=== PATIENT | female | born 1975 | race Caucasian/White ===

== ENCOUNTER 2016-05-29 09:11 | Day surgery (SDC) | payer OTHER ==
[~2016-05-29] VITALS: Ht 167.6 cm; Wt 136.1 kg
[~2016-05-29 09:11] MED LIST: BENZ1KIT27 TP; BENZ200C44 PO; BUPR-97 PO; CLIN30GE2 TP; ESOM20CA28 PO; FEXO180T85 PO; INDO75CA2 PO; KEN25CR EXT; LOSA25TA21 PO; Lactated Ringer's 1,000 ML IV ONE; METF500T4 PO; PRE20 PO; VERA180T5 PO
[2016-05-29] MEDS ORDERED: Lidocaine PF 1% 30 mL Inj ONE (09:12)
[2016-05-29] MEDS ORDERED: Propofol 10,000 mCg/mL 20 mL Inj ONE (09:12)
[2016-05-29 09:34] VITALS: BP 119/67; PULSE 68; O2SAT 98
[2016-05-29] MEDS ORDERED: Lactated Ringer's 1,000 ML IV SCH (09:52)
--- NOTE | 2016-05-29 09:52 | PCM.HPANE ---
Patient Data Date of Service: May 29, 2016 Surgeon Admitting Provider: Attending Provider:Lan Harris MD Primary Care Physician:Ilya Long DO Other Provider:Lynette Walsh Anesthesia Reason for Visit GERD Ht/WT & BMI Height (Feet): 5 Height (Inches): 6 Weight (Kilograms): 136.08 Body Mass Index 48.00 Allergies Coded Allergies: budesonide (Verified Allergy, Severe, RASH, 03/01/09) hydrocodone (Verified Allergy, Severe, HALLUCINATED, 03/01/09) hydrochlorothiazide (Verified Allergy, Unknown, 05/28/16) triamterene (Verified Allergy, Unknown, 05/28/16) Past Anesthesia History Anesthesia History: Denies:: Abnormal Airway, Anesthesia Reactions, Difficult Intubation, Fam Anesthesia Reaction, Fam Malignant Hypertherm, Malignant Hyperthermia Diabetes History Hx Diabetes?: Yes Type of Diabetes: Type II Glycemic Control: Oral Medication Current Bedside Blood Glucose: 91 MRSA MRSA: No Medications Hypertension Medication: Yes Home Meds Incl Beta Kortney: No Reported Medications Bupropion ER (Wellbutrin XL)150 Mg Tab.er.77q003 Mg PO DAILY Ref 0 05/28/16 Verapamil ER 180 Mg Tablet.er180 Mg PO DAILY Ref 0 05/28/16 Triamcinolone Acet (Triamcinolone Acetonide Cream)1 Applic/0.25 Gm Cr1 Applic EXT BID #60 GM Ref 0 05/28/16 Esomeprazole Magnesium (Nexium)20 Mg Capsule.dr20 Mg PO BID Ref 0 05/28/16 Metformin 500 Mg Txquch169 Mg PO DAILY Ref 0 05/28/16 Losartan Potassium 25 Mg Mdmvor38 Mg PO DAILY 05/28/16 Indomethacin ER 75 Mg Bfmhufy61 Mg PO DAILY Ref 0 05/28/16 Benzoyl Perox/Skin Clnsr/Emoll (Acnefree Severe Acne Clr Systm)2.5 %-10 % Kit1 Each TP DAILY 05/28/16 Clindamycin Phosphate (Clindamycin Phosphate Gel)30 Gm Gel..gram.1 Applic TP DAILY #30 GM Ref 0 05/28/16 Benzonatate 200 Mg Mkfkmfo312 Mg PO TID 05/28/16 Fexofenadine (Emely Allergy)180 Mg Ddyloz786 Mg PO DAILY Ref 0 05/28/16 Discontinued Reported Medications Prednisone (PredniSONE)20 Mg Hfsnld24 Mg PO DAILY Ref 0 05/28/16 Discontinued Scripts Prednisone (PredniSONE)20 Mg Ylstin41 Mg PO DAILY #15 TABLET Ref 0 Prov:Man Miller DO 02/01/16 Albuterol HFA (Proair HFA)8.5 Gm Hfa.aer.ad2 Puffs INHALATION Q4H #1 INHALER Prov:Man Miller DO 02/01/16 Azithromycin (Zithromax (Z-Surinder))250 Mg Xxnozy634 Mg PO DIRECTED 5 Days Ref 0 Take two tablets by mouth on day 1, then take one tablet daily on days 2 through 5. Prov:Man Miller DO 02/01/16 History History of ENT Problems?: No HEENT History: Positive for:: Hearing Problem (mild hearing loss) Denies:: Abnormal Airway Difficult Intubation Teeth Condition: Missing Teeth Hx of Heart Problems?: No Cardiovascular History: Positive for:: Hypertension Denies:: Congestive Heart Failure Hx of Respiratory Problem?: No Respiratory History: Positive for:: Use of C-PAP Machine (awaiting machine) Denies:: Tuberculosis Hx Neurologic Problems?: No Neurological History: Denies:: CVA Hx of GI Problems?: Yes Gastrointestinal History: Positive for:: Gall Bladder Disease (removed) Gastroesphageal Reflux (with erosive esophagitis) Hx of Problems?: No Female Hx: Denies:: Currently (tubal ligation) Hx Musculoskeletal Problems?: No Psycho Social History: Positive for:: Anxiety Hx Depression Hx Surgeries?: Yes (Gallbladder removed, plate in left ankle, x2 with tubal ligation) Hx Any Other Health Problems?: Yes Hx Diabetes: No Hx Alcohol Use: Yes (occasional)Hx Substance Use: No Smoking Status: Former Smoker Have You Smoked inLast 12 mo: No Stop/Bang Treated for Sleep Apnea?: Yes Do You Have a CPAP Machine?: No (don't have machine yet) LIZETT Risk Assessment: High Risk, =/>3 Yes LIZETT Category 4 OutPt Procedure: Yes Risk Assessment Category Category 1A: Patient has history of documented sleep apnea, and HAS NOT received any narcotic, sedative or anesthesia administration during this stay. Category 1B: Patient has history of documented sleep apnea, and HAS received any narcotic , sedative or anesthesia administration during this stay Category 2: Patient has SUSPECTED Obstructive Sleep Apnea, and HAS received any narcotic , sedative or anesthesia administration during this stay. Category 3: Patient has SUSPECTED Obstructive Sleep Apnea and HAS NOT received narcotic, sedative or anesthesia administration during this stay. Category 4: Outpatient in Procedural Areas with known sleep apnea or who screen positive for High Risk via the STOP/BANG questionnaire. Exam Exam General Appearance: Alert, Oriented X3, Cooperative HEENT/AIRWAY: MP 2, Neck Movement (Full, thick), Mouth Opening (Wide) Lungs: Clear to Auscultation, Normal Air Movement Heart: Regular Rate/Rhythm, Normal S1, Normal S2 Meds/Labs/Diagnostics Bedside Blood Glucose: 91 Plan Impression Patient chart reviewed, patient interviewed and anesthestic plan with risks, benefits, and alternatives discussed, and informed consent obtained. NPO Status: > 8 hours ASA Physical Status: ASA3 Severe Disease Anesthetic Plan: MAC Bene/Risks/Altern/Consents: Yes HP Complete Prior to Induction: Yes Victoriano Short MD May 29, 2016 09:34
[2016-05-29] MEDS ORDERED: Ondansetron 2 mg/mL 2 mL Inj IVPUSH PRN (09:55)
[2016-05-29] MEDS ORDERED: MetoCLOpramide 5 mg/mL 2 mL Inj IVPUSH PRN (09:55)
[2016-05-29 10:21] VITALS: BP 122/83; PULSE 80; RESP 12; O2SAT 98
--- NOTE | 2016-05-29 10:27 | PCM.ANEP1 ---
Post Anesthesia Phase 1 PACU Phase 1 Assessment Date of Service: May 29, 2016 Vital Signs Vital Signs Date Time Temp Pulse Resp B/P Pulse Ox O2 Delivery O2 Flow Rate FiO2 05/29/16 10:21 36.8 80 12 122/83 98 Room Air 05/29/16 09:34 36.9 68 119/67 98 Room Air Anesthetic Administered: MAC Level of Alertness: Awake, talking DIAZ's with Equal Strength: No Pain: No Nausea or Vomiting: No Lungs: Normal Air Movement Victoriano Short MD May 29, 2016 10:26
[2016-05-29 10:30] VITALS: BP 121/66; PULSE 75; RESP 14; O2SAT 99
--- NOTE | 2016-05-29 10:33 | PCM.ANEP2 ---
Post Anesthesia Evaluation ASA/CMS Post Anesthesia Date of Service: May 29, 2016 VS in Patient's Normal Range?: Yes Resp Stable; Airway Patent?: Yes CV Function & Hydration Stable: Yes Mental Status Recovered?: Yes Pain control Satisfactory?: Yes N/V Control Satisfactory?: Yes Victoriano Short MD May 29, 2016 10:33
[2016-05-29 10:38] VITALS: BP 119/65; PULSE 74; RESP 14; O2SAT 99
--- NOTE | 2016-05-29 11:04 | ENDO ---
[address] [address] ENDOSCOPY PROCEDURE PATIENT: MITCHELL UREÑA : 1975 MR#: [id number] ADMIT: 05/29/2016 JOB ID: [id number] DATE: 05/29/2016 PRIMARY PROVIDER: Ilya Long DO. PROCEDURE: Esophagogastroduodenoscopy with biopsies. INDICATIONS: A 40-year-old female with chronic cough suspected to be associated with reflux. Endoscopic evaluation is pursued. EQUIPMENT: [id number]. SEDATION: Monitored anesthesia as provided by Dr. Victoriano Short. COMPLICATIONS: None identified. PROCEDURE INFORMATION: After the risks and benefits were explained, written and verbal informed consent was obtained. The patient was brought into the endoscopy suite and placed into the left lateral decubitus position. Sedation was achieved as above. The scope was introduced into the mouth through the bite block, and advanced under direct visualization to the second portion of the duodenum. The scope was slowly withdrawn to carefully examine the mucosa for any defects or lesions. Retroflexed views were accomplished in the stomach. The stomach was decompressed. The scope removed from the patient who tolerated the procedure well. FINDINGS: 1. Duodenum: Normal from the bulb through to the second portion. 2. Stomach: No outlet obstruction. The patient had a rather nodular appearing gastropathy all throughout the antrum and prepyloric region. One of these areas was targeted for histopathologic analysis/exclusion of helicobacter. Otherwise, retroflexed views of the LES were rather unremarkable. 3. Esophagus: The squamocolumnar junction correlated with the top of the gastric folds. The GE junction was at 39 cm from the incisors. No acute erosive changes. No strictures. No mass lesions. There may have been a very subtle sliding hiatal hernia present. ENDOSCOPIC DIAGNOSES: 1. Very subtle sliding hiatal hernia. 2. Nodular gastropathy. RECOMMENDATIONS: 1. Await histopathology. 2. Continue b.i.d. PPI therapy for now. 3. Follow up in GI clinic in the next approximately eight weeks. 4. If there is no improvement in chronic cough symptoms, I would suggest proceeding with 24-hour pH examination on therapy.
--- NOTE | 2016-05-30 11:18 | PATH ---
SURGICAL PATHOLOGY Attending Physician:Melba Salazar CASE STATUS: Signed Out PATIENT NAME: MITCHELL UREÑA PID: [id number] : 1975 DATE COLLECTED:05/29/2016 20:05 SPECIMEN: Stomach, Antrum, Biopsy CLINICAL HISTORY: GERD, ABDOMINAL PAIN ANTRUM BIOPSY FINAL DIAGNOSIS: Antrum Biopsy: Antral mucosa with changes consistent with reactive gastropathy. Negative for evidence of Helicobacter. Negative for intestinal metaplasia. Negative for dysplasia and malignancy. ICD10 K31.89 GROSS DESCRIPTION: The specimen is received in one formalin filled container labeled with the patient's name, sublabeled "antral" and consists of a 0.4 x 0.4 x 0.3 CM portion of tissue which is entirely submitted in one cassette. 05/29/2016 [facility] ICD-9 CODES: CPT CODES: 1: 35584 Electronically Signed Out Lan Sierra MD [facility] Pathology [facility] [address] [place] [address] Technical component performed at [facility], [address] [place] [address] [address], [address]
== END 2016-05-29 23:59 | disposition home or self-care (01) ==
LOC: END 09:11
PROVIDERS: ATTEND Internal Medicine Gastroenterology
DX: K44.9 Diaphragmatic hernia without obstruction or gangrene (principal); K31.89 Other diseases of stomach and duodenum; K21.9 Gastro-esophageal reflux disease without esophagitis; I10 Essential (primary) hypertension; G47.33 Obstructive sleep apnea (adult) (pediatric); E11.9 Type 2 diabetes mellitus without complications; F41.9 Anxiety disorder, unspecified; F32.9 Major depressive disorder, single episode, unspecified; E66.9 Obesity, unspecified; Z68.42 Body mass index [BMI] 45.0-49.9, adult; Z79.84 Long term (current) use of oral hypoglycemic drugs; Z79.52 Long term (current) use of systemic steroids; Z90.49 Acquired absence of other specified parts of digestive tract; Z87.891 Personal history of nicotine dependence
CPT/HCPCS: 43239; J7120